=== PATIENT | female | born 1995 | race Caucasian/White ===

== ENCOUNTER 2021-02-20 21:33 | Observation (INO) | payer OTHER, SELFPAY ==
[2021-02-20] VITALS (11 sets, daily range): BP systolic 99–116; BP diastolic 53–78; PULSE 75–113; RESP 18–38; TEMP 37.1; O2SAT 98–100
--- NOTE | ~2021-02-20 | XR_ITS ---
EXAMINATION: XR chest 1V portable INDICATION: Drug overdose TECHNIQUE: Portable AP chest at 2228 hours COMPARISON: None available FINDINGS: The lungs are free of acute opacities. There is no pleural effusion or pneumothorax. The ca rdiomediastinal silhouette is normal. The visualized osseous structures are unremarkable. IMPRESSION: 1. No acute cardiopulmonary abnormality. Reviewed, dictated and finalized at location A.
--- NOTE | 2021-02-20 22:07 | ED_ITS ---
HPI - Overdose General Chief Complaint: Overdose Stated Complaint: OD Time Seen by Provider: 02/20/21 22:05 Source: EMS Mode of arrival: EMS History of Present Illness HPI Narrative: Patient is 25 years old white female brought to the emergency room by ambulance after being pulled over by police. Patient reports taken 18 bottles of heroin in an attempt to commit suicide. After being pulled over, received 8 mg of Narcan by EMS. vomiting shortly after arrival. No significant other at bedside. Related Data Allergies Allergy/AdvReac Type Severity Reaction Status Date / Time No Known Allergies Allergy Unverified 07/30/11 10:40 Review of Systems Review of Systems: ROS unobtainable: Yes unobtainable due to medical condition PMFSH Social History Social History Substance use type: heroin Exam Narrative: General appearance: Well-developed, well-nourished Skin: Normal color Head: Normocephalic, nontraumatic Eyes: Clear conjunctiva ENT: Oropharynx normal, ears normal, nose normal Neck: Supple, nontender Chest and respiratory: Airway patent, no respiratory distress, no accessory muscle use Heart: Regular rate/rhythm Abdomen: Soft, nontender, no organomegaly, quiet bowel sounds Vascular: Normal peripheral pulses, normal capillary refill. Musculoskeletal: Normal range of motion, nontender back Neuro: General: moves all extremities, Normal light touch and pain sensation, patient obtunded and Unable to assess gait Extrem: General: normal to inspection Course Course Emergency Course: Stable Vital Signs Vital signs: Vital Signs Temperature 37.1 C 02/20/21 21:42 Pulse Rate 95 02/20/21 21:42 Respiratory Rate 18 02/20/21 21:42 Blood Pressure 99/53 L 02/20/21 21:42 Temperature 37.1 C 02/20/21 21:42 Pulse Rate 113 H 02/20/21 22:00 Respiratory Rate 29 H 02/20/21 22:00 Blood Pressure 99/53 L 02/20/21 21:42 MDM - Overdose MDM Narrative Medical decision making narrative: Heroin overdose, suicidal attempt. Labs, IV fluid, ordered. Differential Diagnosis Differential diagnosis: Likely drug overdose and other (Major depression, heroin overdose) Imaging Data Radiologist's impression: Impressions Chest X-Ray 02/20/21 22:34 IMPRESSION: 1. No acute cardiopulmonary abnormality. ECG Data EKG #1: Attestation: I personally reviewed and interpreted this ECG as follows: ECG completion date: 02/21/21 ECG completion time: 00:22 Interpretation: Normal sinus rhythm at 91 bpm, normal EKG Critical Care Time Critical Care Time Critical Care Time: Yes Total Critical Care Time: 60 Discharge Plan Discharge Clinical Impression: Suicide attempt by drug overdose Patient Disposition: Still a Patient Condition: Improved Additional Instructions: Admit to ICU Follow-up/Referrals: PHYSICIAN,DIAGNOSTIC RADIOLOGIC TECHNOLOGIST [Primary Care Provider] -
[2021-02-20] MEDS: NALOXONE HCL 0.4 MG/ML VIAL IV PUSH (22:17)
--- NOTE | 2021-02-20 22:17 | ECG_ITS ---
Measurements Intervals [place] Rate: 91 P: 39 WA: 152 QRS: 74 QRSD: 91 T: 52 QT: 346 QTc: 426 Interpretive Statements SINUS RHYTHM BASELINE WANDER- I, II NORMAL ECG Electronically Signed On 02-21-2021 6:37:12 CDT by Tony Dodd D.O.
--- NOTE | 2021-02-20 22:42 | PC.NURSE ---
Pt found with with a bag of pills that police identified as heroine. Given to police on duty
[2021-02-20 22:47] LABS: Alveolar/Arterial O2 Gradient 26.3 mmHg; Base Excess ABG -1.4 mEq/l (+/-2.0); Fractional Inspired Oxygen 21 %; HCO3 ABG 21.1 mEq/l (22.0-26.0); Oxygen Content ABG 18.3 %vol (16.0-22.0); Oxygen Saturation ABG 97.3 % (95.0-100.0); Oxyhemoglobin 94.6 % THb (90.0-100.0); PCO2 ABG 29.5 mmHg (35.0-45.0); PO2 ABG 88.1 mmHg (80.0-100.0); Total Hemoglobin 13.7 g/dL (12.0-18.0); pH ABG 7.472 (7.350-7.450)
[2021-02-20 22:48] LABS: Device ROOM AIR; Modified Allen's Test Pass; Site Drawn LEFT RADIAL
[2021-02-20] MEDS: SODIUM CHLORIDE 0.9% IV 1,000 ML 999 ML IV CONT (23:20)
[2021-02-20 23:23] LABS: Alanine Aminotransferase 15 U/L (4-35); Albumin Level 4.9 g/dL (3.5-5.1); Alkaline Phosphatase 102 U/L (38-126); Anion Gap 8 mmol/L (8-16); Aspartate Amino Transferase 28 U/L (14-36); Bilirubin,Total 0.5 mg/dL (0.2-1.3); Blood Urea Nitrogen 11 mg/dL (7-17); Calcium 9.7 mg/dL (8.4-10.2); Carbon Dioxide 30 mmol/L (22-30); Chloride 103 mmol/L (98-107); Creatine Kinase 61 U/L (30-135); Estimated CRCL calculation 96 ml/min; Estimated Glomerular Filt Rate > 60; Glucose 99 mg/dL (65-110); Potassium 3.4 mmol/L (3.4-5.0); Sodium 141 mmol/L (137-145)
[2021-02-20 23:29] LABS: Basophils Percent Auto 0.3 % (0.2-1.2); Eosinophils Absolute Auto 0.1 K/mm3 (0-0.3); Eosinophils Percent Auto 0.5 % (0-4.4); Hematocrit 40.1 % (37.0-47.0); Hemoglobin 13.4 g/dL (12.0-15.0); Immature Granulocyte Absolute 0.04 K/mm3 (0.00-0.031); Immature Granulocyte Percent A 0.3 % (0-0.5); Lymphocytes Percent Auto 15.7 % (18.3-44.2); Mean Corpuscular HGB Conc 33.4 g/dl (32-36); Mean Corpuscular Hemoglobin 30.2 pg (26-34); Mean Corpuscular Volume 90.5 fl (80-100); Mean Platelet Volume 9.5 fl (7.4-10.4); Monocytes Absolute Auto 0.9 K/mm3 (0.1-0.6); Monocytes Percent Auto 7.7 % (2.6-8.5); Neutrophils Absolute Auto 8.6 K/mm3 (1.3-6.7); Neutrophils Percent Auto 75.5 % (45.5-73.1); Platelet Count Result 349 k/mm3 (150-375); Red Blood Count 4.43 M/mm3 (4.2-5.4); Red Cell Distribution Width 12.4 % (11.5-14.5); White Blood Count 11.4 K/mm3 (4.5-10.0)
[2021-02-20 23:33] LABS: Prothrombin Time 13.2 Seconds (11.1-14.7)
[2021-02-20 23:34] LABS: Partial Thromboplastin Time 35.1 SECONDS (22.3-36.8)
[2021-02-20 23:48] LABS: Acetaminophen < 10 ug/mL (10-30); Ethanol < 10 mg/dL (<10); Salicylate < 1.0 mg/dL (2-20)
[2021-02-20 23:59] LABS: Add Urine Microscopic? YES; Appearance Urine Clear (Clear); Bilirubin Urine Negative (Negative); Blood Urine Negative (Negative); Color Urine Yellow (Yellow); Glucose Urine UA Negative (Negative); Ketones Urine Negative (Negative); Leukocyte Esterase Ur Negative LEU/UL (Negative); Mucus Urine Heavy /lpf; Nitrate Urine Negative (Negative); Protein Urine 1+ mg/dL (Negative); Squamous Epithelial Cell Urine Occasional /hpf (Few); WBC Urine 0-3 /hpf
[2021-02-21] VITALS (7 sets, daily range): BP systolic 113–128; BP diastolic 74–95; PULSE 76–98; RESP 12–18; TEMP 36.6–36.9; O2SAT 97–100; BMI 27.7
[2021-02-21 00:12] LABS: Barbiturate Screen Urine Negative (Negative); Benzodiazepines Screen Urine Negative (Negative)
[2021-02-21 00:33] LABS: Cannabinoid Screen Urine Positive (Negative); Cocaine Screen Urine Negative (Negative); Methadone Screen Urine Negative (Negative); Opiate Screen Urine Positive (Negative); Phencyclidine Screen Urine Negative (Negative)
[2021-02-21] MEDS: SODIUM CHLORIDE 0.9% IV 1,000 ML 999 ML IV CONT (01:10)
[2021-02-21 01:16] LABS: Amphetamine Screen Urine Positive (Negative)
--- NOTE | 2021-02-21 03:10 | ADMGEN ---
This patient, Kiesha Arriola, was admitted to Intensive Care Unit-10. Patient/family oriented to hospital policies and general routines including ID bracelet, bed and alarms, visiting hours, pain management, procedures, bathroom and other care routines, personal items, smoking policy, room service/diet, and visiting hours. Information on how to activate the Rapid Response Team has been discussed. Patient/Family are encouraged to report perceived risks to care and to ask questions if they do not understand what they are told or what they should do. report from Adenike TENA arrived approx 0230
[2021-02-21] MEDS: SODIUM CHLORIDE 0.9% IV 1,000 ML 125 ML IV CONT ×2 (03:25→11:51)
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
[2021-02-21] MEDS: LACTATED RINGERS 1,000 ML 999 ML IV CONT (08:30)
[2021-02-21] MEDS: NICOTINE (*PBKC) 21 MG PATCH 1 PATCH TRANSDERM (08:31)
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
--- NOTE | 2021-02-21 15:10 | PM.DS ---
DS: Admitting Diagnosis Discharge Date 02/21/21 Admitting Diagnosis Intentional Heroin overdose DS: Discharge Diagnosis Discharge Diagnosis (1) Intentional heroin overdose: Qualifiers: Encounter type: initial encounter Qualified Code(s): T40.1X2A - Poisoning by heroin, intentional self-harm, initial encounter Code(s): T40.1X2A - Poisoning by heroin, intentional self-harm, initial encounter Status: Acute Assessment and Plan: Patient intentionally overdosed on heroin. Unclear initially if she was hiding it from the police or suicidal intention. She later states it was done in a suicide attempt. Patient was given Narcan by the EMS and in the ER. Patient was somnolent initially but this improved; she is now AOx4. She recovered well from the overdose. (2) Suicide attempt by drug overdose: Code(s): T50.902A - Poisoning by unspecified drugs, medicaments and biological substances, intentional self-harm, initial encounter Status: Acute Assessment and Plan: Patient initially stated to the police that she was suicidal and so the EMS brought her in the ER. Later, she told the ER and admitting provider that she was not suicidal and she just overdosed to hide it from the police and prevent being arrested. She has been in [facility] in the past. She now states that she has been suicidal for a while. She was cleared medically and Crisis was contacted. Crisis made a safety contract with the patient. (3) Polysubstance abuse: Code(s): F19.10 - Other psychoactive substance abuse, uncomplicated Status: Acute Assessment and Plan: Patient was educated about the benefits of abstaining from drug use. She was agreeable for HIV and Hepatitis screen which was done but results pending. (4) Tobacco use: Code(s): Z72.0 - Tobacco use Status: Acute Assessment and Plan: Patient was educated about the benefits of abstaining from tobacco use. DS: Summary Hospital Course Reason for hospitalization: 25yo female with hx of polysubstance abuse here for intentional heroin overdose. Please see H&P for details Hospital Course: Please see above for details of hospital course. Status at Discharge Cognitive/behavioral status at discharge: stable Time Spent with Patient Time attestation: Total time spent providing and/or coordinating discharge services: 35 minutes Time spent: Greater than 30 minutes Exam Narrative: AF 98.4 113/78 76 14 100% ra Gen - NARD Chest - CTA bilaterally, nml RR CV - RRR S1/S2; Tele showing no significnat dysrhythmias Abd - Soft, NT/ND, Positive BS Ext - No pedal edema Neuro - Alert and oriented x4. Nonfocal exam. Psych - Nml mood and affect, good eye contact. pleasant and cooperative Skin - Warm and dry. Multiple tattoos DS: Data Data Completed and Pending Labs on day of discharge: Labs from last 24 hours 02/20/21 02/20/21 02/20/21 23:24 23:24 22:55 WBC RBC Hgb Hct MCV MCH MCHC RDW Plt Count MPV Immature Gran % (Auto) Neut % (Auto) Lymph % (Auto) [place] % (Auto) Eos % (Auto) Baso % (Auto) Lymph # (Auto) [place] # (Auto) Eos # (Auto) Baso # (Auto) Abs Immat Gran (auto) Absolute Neuts (auto) Absolute Nucleated RBC Nucleated RBC % PT INR APTT Puncture Site ABG pH ABG pCO2 ABG pO2 ABG PO2/FiO2 Ratio ABG HCO3 ABG O2 Saturation ABG O2 Content ABG Base Excess A-a Gradient Oxyhemoglobin Total Hemoglobin O2 Delivery Device O2 Liters/Min FiO2 Sodium Potassium Chloride Carbon Dioxide Anion Gap BUN Creatinine Estim Creat Clear Calc Estimated GFR Glucose Calcium Total Bilirubin AST ALT Alkaline Phosphatase Total Creatine Kinase Total Protein Albumin Urine Color Yellow Urine Appearance Clear Urine
[2021-02-21 16:20] LABS: Beta HCG Quantitative < 2.39 mIU/ML
[2021-02-21 16:54] LABS: Hepatitis B Surface Antigen Negative (Negative)
[2021-02-21 17:00] LABS: HAV RESULT Negative (Negative); Hepatitis B Core IgM Result Negative (Negative)
[2021-02-21 17:12] LABS: Hepatitis C Virus Antibody Negative (Negative)
[2021-02-21 17:19] LABS: HIV 1/2 Ab P24 Ag Result Negative (Negative)
--- NOTE | 2021-02-28 11:02 | PC.NURSE ---
HIV, Hepatitis, BHCG all negative. Dr. Daisy perez.
== END 2021-02-21 16:02 ==
LOC: ANHED 02-21 00:22 → ANHICU 02-21 06:20
PROVIDERS: Admitting Provider Internal Medicine; Emergency Provider Emergency Medicine; Visit Provider Internal Medicine
DX: T40.1X2A Poisoning by heroin, intentional self-harm, initial encounter (principal); F19.10 Other psychoactive substance abuse, uncomplicated; F17.290 Nicotine dependence, other tobacco product, uncomplicated
CPT/HCPCS: 36415; 36600; 51701; 71045; 80053; 80074; 80307; 81001; 81025; 82550; 82805; 84702; 85025; 85610; 85730; 86703; 93005; 96361; 96374; 99285; A9270; G0378; G0432; J2310; J7030; J7120